=== PATIENT | female | born 1995 | race Caucasian/White ===

== ENCOUNTER 2019-06-04 21:40 | Emergency (ER) | payer OTHER ==
[~2019-06-04] VITALS: Ht 167.6 cm; Wt 90.7 kg
[2019-06-04 21:49] VITALS: BP_SYST 152
[2019-06-04 23:00] VITALS: BP_SYST 132
[2019-06-04] MEDS ORDERED: IPRATROPIUM/ALBUTEROL SULFATE 3 ML AMPUL.NEB (DUONEB) INH ONE (23:15)
[2019-06-04] MEDS ORDERED: LORazepam 1 MG TABLET PO ONE (23:45)
== END 2019-06-05 00:40 | disposition left against medical advice (07) ==
LOC: SED 21:40
DX: J45.909 Unspecified asthma, uncomplicated (principal); F41.9 Anxiety disorder, unspecified; Z88.1 Allergy status to other antibiotic agents
CPT/HCPCS: 71045; 94640; 99283; J7620